=== PATIENT | male | born 1950 | race Caucasian/White ===

== ENCOUNTER 2018-05-26 12:13 | Inpatient (IN) | payer MEDICARE ==
[~2018-05-26] VITALS: Ht 167.6 cm; Wt 61.2 kg
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
[2018-05-26 12:45] VITALS: BP 165/106
[2018-05-26] MEDS ORDERED: MAG HYDROX/AL HYDROX/SIMETH 30 ML UDC PO PRN (13:00)
[2018-05-26] MEDS ORDERED: MAGNESIUM HYDROXIDE 30 ML UDC PO PRN (13:00)
[2018-05-26] MEDS ORDERED: LORAZEPAM 0.5 MG TABLET PO PRN (13:00)
[2018-05-26] MEDS ORDERED: ACETAMINOPHEN 325 MG TABLET PO PRN (13:00)
[2018-05-26] MEDS ORDERED: METO-356 PO (13:19)
[2018-05-26] MEDS ORDERED: MIRT15TA7 PO (13:19)
[2018-05-26] MEDS ORDERED: LISI-607 PO (13:19)
[2018-05-26] MEDS ORDERED: ASPI-1169 PO (13:19)
[2018-05-26 16:05] VITALS: BP 156/96
[2018-05-26 20:07] VITALS: BP 140/94
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
--- NOTE | 2018-05-27 03:01 | NUR ---
GPS RN NOTES RECEIVED PT ON BED SLEEPING. WILL CONTINUE TO MONITOR, NO RESPIRATORY DISTRESS NOTED AT THIS TIME. SITTER AT THE BEDSIDE.
[2018-05-27 07:28] LABS: CHOLESTEROL 153 mg/dL (<200); HDL CHOLESTEROL 40 mg/dL (40-60); LDL 107 mg/dL (0-99); TRIGLYCERIDES 82 mg/dL (30-150)
[2018-05-27 07:31] LABS: ALBUMIN 3.6 g/dL (3.4-5.0); BILIRUBIN,TOTAL 1.9 mg/dL (0.2-1.0); CALCIUM, SERUM 9.1 mg/dL (8.5-10.1); CREATININE 0.8 mg/dL (0.6-1.3); POTASSIUM 3.9 mmol/L (3.5-5.1); TOTAL PROTEIN, SERUM 7.7 g/dL (6.4-8.2)
[2018-05-27 08:00] VITALS: BP 125/69
[2018-05-27] MEDS: ASPIRIN 81 MG TAB.CHEW PO SCH (08:59)
[2018-05-27] MEDS: METOPROLOL SUCCINATE 25 MG TAB.SR.24H PO SCH (08:59)
[2018-05-27] MEDS: LISINOPRIL (5MG) 5 MG TABLET PO SCH (08:59)
[2018-05-27 16:00] VITALS: BP 138/86
[2018-05-27 19:59] VITALS: BP 95/59
[2018-05-27] MEDS ORDERED: QUETIAPINE FUMARATE 25 MG TABLET PO SCH (23:00)
[2018-05-28] MEDS: METOPROLOL SUCCINATE 25 MG TAB.SR.24H PO SCH (09:00)
[2018-05-28] MEDS: LISINOPRIL (5MG) 5 MG TABLET PO SCH (09:19)
[2018-05-28] MEDS: ASPIRIN 81 MG TAB.CHEW PO SCH (09:19)
[2018-05-28 09:23] VITALS: BP 112/66
--- NOTE | 2018-05-28 13:16 | NUR ---
Initial Discharge Plan: Pt currently resides in a home located at [address] [place] [address] with his daughter and her three sons. Per pt, he is unsure about his discharge plan. SWAPNIL called the pt's daughter and she stated that the family is open to transferring the pt to a facility or his will take him in and look after him. SWAPNIL will work with the pt and the MD regarding appropriate discharge planning. SWAPNIL will form a safe and proper discharge.
--- NOTE | 2018-05-28 13:17 | NUR ---
SW called the pt's daughter, Radha ([phone]), and she stated that their family is open to the pt being discharged to a different facility near their home or they want the pt to go live with his who will take care of him.
[2018-05-28 16:01] VITALS: BP 108/72
[2018-05-28 20:00] VITALS: BP 109/68
[2018-05-28] MEDS: TEMAZEPAM 7.5 MG CAPSULE PO PRN (20:49)
--- NOTE | 2018-05-28 21:38 | NUR ---
At 2048 temazepam 7.5 mg tab 1 po given for sleep.
[2018-05-28] MEDS ORDERED: QUETIAPINE FUMARATE 25 MG TABLET PO SCH (22:00)
[2018-05-29 08:00] VITALS: BP 114/79
[2018-05-29] MEDS: LISINOPRIL (5MG) 5 MG TABLET PO SCH (08:28)
[2018-05-29] MEDS: ASPIRIN 81 MG TAB.CHEW PO SCH (08:28)
[2018-05-29] MEDS: METOPROLOL SUCCINATE 25 MG TAB.SR.24H PO SCH (08:28)
[2018-05-29 16:00] VITALS: BP 113/73
[2018-05-29 20:00] VITALS: BP 135/76
[2018-05-30 08:00] VITALS: BP 128/78
[2018-05-30] MEDS: ASPIRIN 81 MG TAB.CHEW PO SCH (11:24)
[2018-05-30] MEDS: METOPROLOL SUCCINATE 25 MG TAB.SR.24H PO SCH (11:30)
[2018-05-30] MEDS: LISINOPRIL (5MG) 5 MG TABLET PO SCH (11:31)
[2018-05-30 16:00] VITALS: BP 133/85
[2018-05-30] MEDS ORDERED: SERTRALINE HCL 25 MG TABLET PO SCH (17:00)
[2018-05-30 20:00] VITALS: BP 128/76
[2018-05-30] MEDS ORDERED: SERTRALINE HCL 25 MG TABLET PO ONE ×2 (20:00→23:00)
[2018-05-30] MEDS ORDERED: QUETIAPINE FUMARATE 25 MG TABLET PO SCH ×2 (22:00)
[2018-05-30] MEDS: TEMAZEPAM 7.5 MG CAPSULE PO PRN (22:26)
[2018-05-31 08:00] VITALS: BP 123/78
[2018-05-31] MEDS: LISINOPRIL (5MG) 5 MG TABLET PO SCH (08:59)
[2018-05-31] MEDS: ASPIRIN 81 MG TAB.CHEW PO SCH (08:59)
[2018-05-31] MEDS: METOPROLOL SUCCINATE 25 MG TAB.SR.24H PO SCH (09:00)
[2018-05-31] MEDS: BENZTROPINE MESYLATE (1 MG) 1 MG TABLET PO SCH ×2 (14:32→16:29)
[2018-05-31 16:00] VITALS: BP 125/55
[2018-05-31] MEDS: SERTRALINE HCL 25 MG TABLET PO SCH (16:29)
[2018-05-31] MEDS ORDERED: SERTRALINE HCL 25 MG TABLET PO SCH (17:00)
[2018-05-31 19:44] VITALS: BP 127/90
[2018-05-31 20:00] VITALS: BP 127/90
--- NOTE | 2018-05-31 20:39 | NUR ---
rn initial notes: pt in bed, awake, a/o x2-3 with episode of confusion, respiration even and unlabored, denies any pain or discomfort att hsi time, pt is medication compliant per report, ambulatory, safety precautions for fall engaged, side rails up x2 for safety, bed in lowest position, bed alarm secured, will continue monitoring pt [id number] for safety and any changes in behavior
[2018-05-31] MEDS: QUETIAPINE FUMARATE 25 MG TABLET PO SCH (21:36)
[2018-05-31] MEDS: DONEPEZIL 5 MG TABLET PO SCH (21:36)
[2018-05-31] MEDS: TEMAZEPAM 7.5 MG CAPSULE PO PRN (21:36)
[2018-06-01 08:29] VITALS: BP 120/76
[2018-06-01] MEDS: LISINOPRIL (5MG) 5 MG TABLET PO SCH (09:19)
[2018-06-01] MEDS: BENZTROPINE MESYLATE (1 MG) 1 MG TABLET PO SCH ×2 (09:19→17:20)
[2018-06-01] MEDS: ASPIRIN 81 MG TAB.CHEW PO SCH (09:19)
[2018-06-01] MEDS: METOPROLOL SUCCINATE 25 MG TAB.SR.24H PO SCH (09:20)
--- NOTE | 2018-06-01 09:58 | NUR ---
SW sent a referral for the pt to two facilities: [facility] long term facility and [facility] long term facility.
--- NOTE | 2018-06-01 09:58 | NUR ---
SWAPNIL called the pt's daughter, Radha ([phone]), and stated that the psychiatrist's recommendation is that the pt go to a [facility] facility before returning home. The daughter agreed and then stated that she wanted him to be placed in the [place] area.
[2018-06-01 16:00] VITALS: BP 121/73
[2018-06-01] MEDS: SERTRALINE HCL 25 MG TABLET PO SCH (17:20)
[2018-06-01 19:34] VITALS: BP 141/90
[2018-06-01] MEDS: QUETIAPINE FUMARATE 25 MG TABLET PO SCH (21:01)
[2018-06-01] MEDS: DONEPEZIL 5 MG TABLET PO SCH (21:01)
[2018-06-02 08:00] VITALS: BP 137/72
[2018-06-02] MEDS: METOPROLOL SUCCINATE 25 MG TAB.SR.24H PO SCH (08:31)
[2018-06-02] MEDS: LISINOPRIL (5MG) 5 MG TABLET PO SCH (08:31)
[2018-06-02] MEDS: ASPIRIN 81 MG TAB.CHEW PO SCH (08:31)
[2018-06-02] MEDS: BENZTROPINE MESYLATE (1 MG) 1 MG TABLET PO SCH ×2 (08:31→17:05)
--- NOTE | 2018-06-02 14:24 | NUR ---
SWAPNIL called Martine ([phone]) from [facility] and she stated that she did not receive the referral so the SW sent it again after verifying that the fax number [phone]) is correct.
--- NOTE | 2018-06-02 14:25 | NUR ---
SWAPNIL called Claribel ([phone]) from [facility] and she stated that the pt was denied due to behavioral reasons.
[2018-06-02 16:00] VITALS: BP 128/77
[2018-06-02 20:13] VITALS: BP 121/78
[2018-06-02] MEDS: DONEPEZIL 5 MG TABLET PO SCH (21:10)
[2018-06-02] MEDS: QUETIAPINE FUMARATE 25 MG TABLET PO SCH (21:10)
[2018-06-03 08:00] VITALS: BP 133/72
[2018-06-03] MEDS: BENZTROPINE MESYLATE (1 MG) 1 MG TABLET PO SCH ×2 (08:48→16:10)
[2018-06-03] MEDS: LISINOPRIL (5MG) 5 MG TABLET PO SCH (08:48)
[2018-06-03] MEDS: ASPIRIN 81 MG TAB.CHEW PO SCH (08:48)
[2018-06-03] MEDS: METOPROLOL SUCCINATE 25 MG TAB.SR.24H PO SCH (08:48)
[2018-06-03] MEDS: SERTRALINE HCL 50 MG TABLET PO SCH ×2 (08:51→16:10)
--- NOTE | 2018-06-03 13:11 | NUR ---
SWAPNIL called Martine ([phone]) from [facility] and she stated that the pt was not accepted due to behavioral concerns.
--- NOTE | 2018-06-03 13:19 | NUR ---
SW called the pt's daughter, Radha ([phone]), and informed her that the two long-term facilities that referrals were sent to denied the pt but that the SW is going to be sending more referrals out.
--- NOTE | 2018-06-03 13:55 | NUR ---
SWAPNIL faxed a referral to [facility] ([facility]) to the fax number: [phone].
[2018-06-03 16:00] VITALS: BP 154/74
[2018-06-03 19:47] VITALS: BP 101/62
[2018-06-03 20:00] VITALS: BP 101/62
[2018-06-03] MEDS: DONEPEZIL 5 MG TABLET PO SCH (22:23)
[2018-06-03] MEDS: QUETIAPINE FUMARATE 25 MG TABLET PO SCH (22:23)
[2018-06-04 08:00] VITALS: BP_SYST 133; BP_DIAS 133; BP_DIAS 78
[2018-06-04] MEDS: LISINOPRIL (5MG) 5 MG TABLET PO SCH (08:17)
[2018-06-04] MEDS: ASPIRIN 81 MG TAB.CHEW PO SCH (08:18)
[2018-06-04] MEDS: METOPROLOL SUCCINATE 25 MG TAB.SR.24H PO SCH (08:18)
[2018-06-04] MEDS: BENZTROPINE MESYLATE (1 MG) 1 MG TABLET PO SCH ×2 (08:18→16:14)
[2018-06-04] MEDS: SERTRALINE HCL 25 MG TABLET PO SCH (08:20)
--- NOTE | 2018-06-04 12:10 | NUR ---
Hannah ([phone]) from [facility] stated that the pt was accepted to their facility.
--- NOTE | 2018-06-04 12:15 | NUR ---
SWAPNIL called the pt's daughter, Radha ([phone]), and left her a voicemail stating that the pt was accepted to [facility] in [place] and provided her with the address and phone number to the facility.
[2018-06-04 16:00] VITALS: BP 115/77
[2018-06-04] MEDS: SERTRALINE HCL 50 MG TABLET PO SCH (16:14)
[2018-06-04 20:00] VITALS: BP 146/81
[2018-06-04] MEDS: QUETIAPINE FUMARATE 25 MG TABLET PO SCH (21:21)
[2018-06-04] MEDS: DONEPEZIL 5 MG TABLET PO SCH (21:21)
[2018-06-05 08:00] VITALS: BP 149/77
[2018-06-05] MEDS: METOPROLOL SUCCINATE 25 MG TAB.SR.24H PO SCH (08:26)
[2018-06-05] MEDS: LISINOPRIL (5MG) 5 MG TABLET PO SCH (08:26)
[2018-06-05] MEDS: ASPIRIN 81 MG TAB.CHEW PO SCH (08:26)
[2018-06-05] MEDS: SERTRALINE HCL 25 MG TABLET PO SCH (08:26)
[2018-06-05] MEDS: BENZTROPINE MESYLATE (1 MG) 1 MG TABLET PO SCH ×2 (08:27→17:22)
--- NOTE | 2018-06-05 15:43 | NUR ---
SWAPNIL called the pt's daughter, Radha ([phone]), informed her that the pt will be discharging on Friday.
[2018-06-05 16:00] VITALS: BP 135/86
[2018-06-05] MEDS: SERTRALINE HCL 50 MG TABLET PO SCH (17:22)
[2018-06-05 20:00] VITALS: BP 144/87
[2018-06-05] MEDS: DONEPEZIL 5 MG TABLET PO SCH (21:26)
[2018-06-05] MEDS: QUETIAPINE FUMARATE 25 MG TABLET PO SCH (21:26)
[2018-06-06 08:00] VITALS: BP 147/96
[2018-06-06] MEDS: METOPROLOL SUCCINATE 25 MG TAB.SR.24H PO SCH (08:47)
[2018-06-06] MEDS: BENZTROPINE MESYLATE (1 MG) 1 MG TABLET PO SCH ×2 (08:47→16:17)
[2018-06-06] MEDS: SERTRALINE HCL 25 MG TABLET PO SCH (08:47)
[2018-06-06] MEDS: LISINOPRIL (5MG) 5 MG TABLET PO SCH (08:47)
[2018-06-06] MEDS: ASPIRIN 81 MG TAB.CHEW PO SCH (08:48)
[2018-06-06 16:00] VITALS: BP 140/92
[2018-06-06] MEDS: SERTRALINE HCL 50 MG TABLET PO SCH (16:17)
[2018-06-06 20:00] VITALS: BP 113/68
[2018-06-06] MEDS: QUETIAPINE FUMARATE 25 MG TABLET PO SCH (21:11)
[2018-06-06] MEDS: DONEPEZIL 5 MG TABLET PO SCH (21:11)
[2018-06-06] MEDS: TEMAZEPAM 7.5 MG CAPSULE PO PRN (22:22)
[2018-06-07 08:00] VITALS: BP 123/76
[2018-06-07] MEDS: LISINOPRIL (5MG) 5 MG TABLET PO SCH (09:20)
[2018-06-07] MEDS: ASPIRIN 81 MG TAB.CHEW PO SCH (09:20)
[2018-06-07] MEDS: BENZTROPINE MESYLATE (1 MG) 1 MG TABLET PO SCH ×2 (09:20→17:35)
[2018-06-07] MEDS: SERTRALINE HCL 25 MG TABLET PO SCH (09:20)
[2018-06-07] MEDS: METOPROLOL SUCCINATE 25 MG TAB.SR.24H PO SCH (09:21)
[2018-06-07 16:00] VITALS: BP 116/77
[2018-06-07] MEDS: SERTRALINE HCL 50 MG TABLET PO SCH (17:35)
[2018-06-07 20:19] VITALS: BP 117/68
[2018-06-07] MEDS: QUETIAPINE FUMARATE 25 MG TABLET PO SCH (21:02)
[2018-06-07] MEDS: DONEPEZIL 5 MG TABLET PO SCH (21:02)
[2018-06-08 08:00] VITALS: BP 119/70
[2018-06-08] MEDS: BENZTROPINE MESYLATE (1 MG) 1 MG TABLET PO SCH (08:32)
[2018-06-08] MEDS: ASPIRIN 81 MG TAB.CHEW PO SCH (08:32)
[2018-06-08] MEDS: METOPROLOL SUCCINATE 25 MG TAB.SR.24H PO SCH (08:33)
[2018-06-08 08:34] VITALS: BP 119/70
[2018-06-08] MEDS: SERTRALINE HCL 25 MG TABLET PO SCH (08:34)
[2018-06-08] MEDS: LISINOPRIL (5MG) 5 MG TABLET PO SCH (08:34)
--- NOTE | 2018-06-08 14:15 | NUR ---
GPS/RN PATIENT CLEARED FOR DISCHARGE TO [facility] BY DR MARQUES AND DR WATTERS. MEDICATIONS RECONCILED BY BOTH DR,S. EXIT CARE, DISCHARGE PACKET,MEDICATIONS AND AFTER CARE PLAN EXPLAINED TO PATIENT, VERBALIZED UNDERSTANDING. BELONGINGS RETURNED, PATIENT DENIES SI/HI/AVH UPON DISCHARGE, PSYCHIATRIC TREATMENT PLANS MET. REPORT CALLED TO FACILITY, SPOKE WITH JOLIE. SKIN INTACT. LEFT UNIT CALM, COOPERATIVE, NO DISTRESS, WITH AMBULANCE TRANSPORT AT SIDE.
--- NOTE | 2018-06-08 14:51 | NUR ---
SWAPNIL called the pts daughter, Radha ([phone]), and informed her once again that the pt is being discharged today. The SW then passed the phone to the pt so that he was able to speak to his daughter.
--- NOTE | 2018-06-08 14:52 | NUR ---
Discharge Note: Pt was discharged to [facility] ([facility]) located at [address] [place] [address]; . Pt was transported via [facility] (Trip #[id number]) at 2pm. Pts daughter, Radha ([phone]), was aware of this discharge and had agreed to it. Upon discharge, the pt was in a euthymic mood with an anxious affect. Pt stated that he was really concerned about his family but then he spoke to his daughter and accepted the placement. Pt will be under the care of psychiatrist, Dr. Mandel, located at [address] [place] [address]; and ski topper, Dr. Pinto, located at [address] [place] [address]; .
== END 2018-06-08 16:14 | DRG 885 ==
LOC: GPS 12:13 → GPSOV2 20:35 → GPS 05-27 17:46
PROVIDERS: ADMIT Psychiatry & Neurology Psychosomatic Medicine; ATTEND Nurse Practitioner Acute Care
DX: F29 Unspecified psychosis not due to a substance or known physiological condition (principal); F01.50 Vascular dementia, unspecified severity, without behavioral disturbance, psychotic disturbance, mood disturbance, and anxiety; R45.851 Suicidal ideations; F41.9 Anxiety disorder, unspecified; F32.9 Major depressive disorder, single episode, unspecified; I10 Essential (primary) hypertension
CPT/HCPCS: 36415; 80053-TC; 80061-TC; 87081-TC